=== PATIENT | female | born 1970 | race Caucasian/White ===

== ENCOUNTER 2017-10-08 14:04 | Outpatient (CLI) | payer BC | END 2017-10-08 14:05 | disposition home or self-care (01) | LOC: BICMAMMO 14:04 | PROVIDERS: ATTEND Physician Assistant | DX: Z13.820 Encounter for screening for osteoporosis (principal) | CPT/HCPCS: 77080 ==

== ENCOUNTER 2018-05-09 07:04 | Outpatient (CLI) | payer BC ==
[2018-05-09 17:24] LABS: Hemoglobin 11.1 g/dL (12.0-16.0); Mean Corpuscular HGB CONC 32.1 g/dL (32.0-36.0); Mean Corpuscular Volume 74.9 fL (78.0-98.0); Mean Platelet Volume 9.8 fL (7.4-10.4); Platelet Count 301 thou/uL (130-400); Red Blood Cell (RBC) Count 4.62 mill/uL (4.20-5.40); White Blood Cell (WBC) Count 6.6 thou/uL (4.8-10.8)
[2018-05-09 17:41] LABS: Anion Gap 10 mmol/L (10-20); BUN (Urea Nitrogen) 14 mg/dL (7.0-18.7); Calc. Creatinine Clearance 0 mL/min (70-130); Calcium 9.4 mg/dL (7.8-10.44); Carbon Dioxide 29 mmol/L (22-29); Chloride 105 mmol/L (98-107); Estimated GFR-MDRD 71; Glucose 85 mg/dL (70-105); Potassium 4.1 mmol/L (3.5-5.1); Sodium 140 mmol/L (136-145)
== END 2018-05-09 07:05 | disposition home or self-care (01) ==
LOC: LABBT 07:04
PROVIDERS: ATTEND Obstetrics & Gynecology
DX: Z01.812 Encounter for preprocedural laboratory examination (principal); N92.1 Excessive and frequent menstruation with irregular cycle
CPT/HCPCS: 80048; 85027; 86850; 86900; 86901

== ENCOUNTER 2018-05-10 05:54 | Day surgery (SDC) | payer BC ==
[2018-05-09 16:28] VITALS: BMI 26.9
--- NOTE | 2018-05-09 23:25 | HP ---
DATE OF PLANNED PROCEDURE: 05/10/2018. PREOPERATIVE DIAGNOSIS: Menometrorrhagia. HISTORY OF PRESENT ILLNESS: Ms. Eladia Ward is a 47-year-old who is G0, is referred to me for irregular bleeding. The patient reports that years ago, her periods were regular monthly, but since a gastric sleeve procedure in 2014, her periods have become more irregular and heavier. She reports that she has periods somewhere between every 2-6 weeks. Her periods are heavy with passage of clots and bright red bleeding. At times, she also notes prolonged periods lasting 2-3 weeks. The patient underwent removal of a cervical polyp and endometrial biopsy and was started on low-dose oral contraceptives for management of her menometrorrhagia. The patient returned to clinic months later requesting definitive management with a hysterectomy as she continues to have irregular bleeding; however, business architect, but still irregular with medical management. The patient has a history of iron and has lost approximately 210 pounds since gastric sleeve procedure over 3 years ago. PAST MEDICAL HISTORY: Overweight. Gastroesophageal reflux disease. PAST SURGICAL HISTORY: Gastric sleeve surgery in 2014, arthroscopic left knee surgery, and cholecystectomy. FAMILY HISTORY: Hypercholesterolemia in her mother. Obesity in both her parents. Coronary artery disease in her father. SOCIAL HISTORY: The patient has never been a smoker. She denies alcohol or drug use. CURRENT MEDICATIONS: 1. Furosemide 20 mg as needed. 2. Potassium supplement. 3. Multivitamin. 4. Prilosec over the counter. ALLERGIES: THE PATIENT IS ALLERGIC TO BACTRIM AND SULFA ANTIBIOTICS. REVIEW OF SYSTEMS: Negative except as stated in HPI. PHYSICAL EXAMINATION: GENERAL: No acute distress. Alert and oriented. VITAL SIGNS: 5 feet 8 inches, 177 pounds. BMI 26.9, blood pressure 110/60, pulse 59, respirations 18, O2 saturation 99%. Last menstrual period 03/29/2018. CHEST: Nonlabored breathing. ABDOMEN: Soft, nondistended, nontender. No guarding or rebound. No masses. Well-healed laparoscopic incisions noted from previous surgery. GENITOURINARY: Normal external female genitalia. Normal vaginal mucosa. No cervical lesions. No discharge. No cervical motion tenderness. Uterus is midline, not enlarged on exam. Adnexa with no masses. Bladder and urethra are nondistended with a normal meatus. SKIN: No rashes. MENTAL STATUS: Appropriate affect and appropriate mood. DIAGNOSTICS: Endometrial biopsy from 10/21/2017 with benign secretory endometrium. Cervical polyp noted to be a benign endocervical polyp. ASSESSMENT AND PLAN: Ms. Eladia Ward is a 47-year-old with menometrorrhagia likely secondary to extreme weight loss of over 200 pounds. However, refractory to medical management. The patient desires definitive management with robotic assisted total laparoscopic hysterectomy and bilateral salpingectomy. The risks and benefits of the procedure have been explained to her in detail. The risks are to include, but not limited to bleeding, infection, conversion to open laparotomy, inability to fully diagnose and treat all conditions at the time of surgery and possible need for future medical and/or surgical management. The patient's questions have been answered to her satisfaction and she desires to proceed with the procedure as listed above. Job ID: [id number]
[2018-05-10] MEDS ORDERED: Gabapentin 300 MG CAP ONE (06:19)
[2018-05-10] MEDS ORDERED: Famotidine/PF 20 mg/2ml Vial ONE (06:19)
[2018-05-10] MEDS ORDERED: CEFAZOLIN 2 GM/50 ML BAG ONE (06:20)
[2018-05-10] MEDS ORDERED: CeleCOXIB 100 MG CAP ONE (06:20)
[2018-05-10] MEDS ORDERED: Bupivacaine HCl 0.5%/Epinephrine 1:200,000/PF 30 ml Vial ONE (07:07)
[2018-05-10] MEDS ORDERED: Fentanyl 250 MCG/5 ML VIAL ONE (07:12)
[2018-05-10] MEDS ORDERED: Midazolam HCl 2 mg/2 ml Vial ONE (07:25)
[2018-05-10] MEDS ORDERED: Ropivacaine 0.2% 550 ML 750 ML NERVE BLCK SCH (07:45)
[2018-05-10] MEDS ORDERED: ROPIVACAINE HCL NERVE BLCK SCH (08:00)
[2018-05-10] MEDS ORDERED: ADMIXTURE FEE NERVE BLCK SCH (08:00)
[2018-05-10] MEDS ORDERED: Ondansetron HCl/PF 4 MG/2 ML Vial IVP PRN (08:11)
[2018-05-10] MEDS ORDERED: Promethazine HCl 25 MG/ML VIAL IM PRN ×2 (08:11→12:30)
[2018-05-10] MEDS ORDERED: Fentanyl 100 MCG/2 ML VIAL ONE ×2 (10:40→11:13)
[2018-05-10] MEDS ORDERED: Zolpidem Tartrate 5 MG TAB PO PRN (12:30)
[2018-05-10] MEDS ORDERED: Sodium Chloride 0.9% 1,000 ML IV SCH (12:30)
[2018-05-10] MEDS ORDERED: Morphine 4 MG/ML VIAL SLOW IVP PRN (12:30)
[2018-05-10] MEDS ORDERED: HYDROcodone/Acetaminophen 5/325 mg Tablet PO PRN ×2 (12:30)
[2018-05-10] MEDS ORDERED: Ondansetron PF 4 MG/2 ML Vial IVP PRN (12:30)
[2018-05-10] MEDS ORDERED: diphenhydrAMINE 25 MG CAP PO PRN (12:30)
[2018-05-10] MEDS ORDERED: Simethicone Chewable 80 MG TAB PO PRN (12:30)
[2018-05-10] MEDS ORDERED: Bisacodyl 10 MG SUPP PR PRN (12:30)
[2018-05-10] MEDS ORDERED: Ondansetron PF 4 MG/2 ML Vial ONE (13:59)
[2018-05-10] MEDS ORDERED: Dexamethasone 20 MG/5 ML VIAL ONE (13:59)
[2018-05-10] MEDS ORDERED: Rocuronium Bromide 10 MG/ML (10ML VIAL) ONE (13:59)
[2018-05-10] MEDS ORDERED: PROPOFOL 200 MG/20 ML VIAL ONE (13:59)
[2018-05-10] MEDS ORDERED: Ibuprofen 800 MG TAB PO SCH (14:00)
--- NOTE | 2018-05-10 14:05 | PDOC.EVN ---
Event Note - Event Note Event Note: POD 0 -Doing well, using OnQ for pain control, no nausea, just started CLD O: NAD A and O resting comfortably A/P: POD 0 after LUIS Gunderson just DC'd, likely DC later this evening.
[2018-05-10 14:26] VITALS: TEMP 98.1
[2018-05-10 16:42] VITALS: BP 128/60
--- NOTE | 2018-05-10 16:57 | OP ---
DATE OF PROCEDURE: 05/10/2018 PREOPERATIVE DIAGNOSES: 1. Menometrorrhagia. 2. History of bariatric surgery. PROCEDURES PERFORMED: Robotic-assisted total laparoscopic hysterectomy, bilateral salpingectomy, and placement of On-Q pump. ASSISTANTS: JESSENIA Nolasco and Janis Samuels MD COMPLICATIONS: None. ESTIMATED BLOOD LOSS: 50 mL. URINE OUTPUT: 50 mL during the case and 75 mL at the start of the case. ANESTHESIA: GETA per Dr. Sy. FINDINGS: 1. Uterus sounds to 7 cm. 2. Redundant connective tissue and abdominal laxity. 3. Normal-appearing uterus, tubes, and ovaries bilaterally during the laparoscopic portion of the case. 4. Surgical site hemostatic and vaginal cuff hemostatic. 5. No intraabdominal adhesive disease. DESCRIPTION OF PROCEDURE: The patient was taken back to the OR with IV fluids running. When she was in the OR, she was placed in dorsal supine position and general anesthesia was obtained. Once the patient was asleep, her arms were tucked at her side and her legs were placed in low dorsal lithotomy position. The abdomen and vagina were prepped and draped in normal fashion for gynecologic laparoscopy. A Gunderson catheter was placed into the bladder, which drained 75 mL of urine. A Vy syringe was placed at the tip of the catheter for bladder manipulation if needed during the case. An operative speculum was placed into the vagina, and the anterior lip of the cervix was easily visualized and grasped. The cervix was serially dilated to allow passage of a uterine sound. The uterus sounded between 7 and 8 cm. A Poliana-Zeo manipulator was assembled with an 8 cm tip and 3.5 cm cup and placed into the uterus and vagina in normal fashion. The vaginal and uterine occluder balloons were inflated. The surgeon's gloves were changed. Then, attention was turned to the laparoscopic portion of the case. Beginning approximately 4 cm above the umbilicus, the skin was injected with local anesthesia. A 12-mm skin incision was made with a scalpel. The abdomen was tented up, and a Veress needle was passed. However, the peritoneum did not insufflate and we were unable to get a low insufflation pressure with a Veress needle. Due to the concern for distorted anatomy after bariatric surgery and connective tissue laxity, the decision was made to proceed with a direct entry using Magnolia technique. The skin was incised approximately 2 to 3 mm additional for visualization. The fascia was identified, and the adipose tissue was dissected around the fascia. The fascia was then incised, and the edges of the fascia were tagged with Vicryl suture. The Magnolia port was then placed into the peritoneal cavity. The intraperitoneal balloon on the trocar tip was inflated, and the abdomen was then insufflated without difficulty. The laparoscope was placed through the trocar with the above findings noted. The patient was then placed in Trendelenburg position. The next three ports were placed as 8 mm ports in the right and left lower quadrant and a 12 mm port in the right upper quadrant. These were all placed after injecting local anesthesia into the skin, incising the skin with a scalpel and placing the trocar through the skin incision under direct visualization all done without difficulty. After the ports were placed, the robotic arms were docked. The instruments were passed through the trocars under direct visualization. Beginning on the patient's left side, the left fallopian tube was elevated. It was grasped and elevated away from the pelvic sidewall. It was cauterized, transected, and removed and sent for pathologic review. The utero-ovarian artery was cauterized with bipolar cautery on the patient's left side. The round ligament on the patient's left side was cauterized, incised, and divided into anterior and posterior leaves. The round ligament was taken down toward the level of the uterine artery. Uterine artery was then skeletonized. After uterine artery was skeletonized, the anterior leaf of the broad ligament was taken down toward the level of the cervix, and the bladder flap was created. The uterine artery was then cauterized and divided on the patient's left side. Good hemostasis was noted. Attention was then turned to the contralateral side, where the right fallopian tube was grasped, elevated, and transected with cautery. The right fallopian tube was removed to be sent with a final pathologic specimen. The utero-ovarian ligament on the patient's right side was cauterized and transected allowing the right ovary to fall away to the right pelvic sidewall. Of note, the ureters were both easily visualized prior to and during this part of the case. The right round ligament was then cauterized, transected, and divided into anterior and posterior leaves. The anterior leaf was taken down around the uterine artery, and the bladder flap was continued until it could be completely dissected away from the planned colpotomy site. The uterine artery on the patient's right side was skeletonized, cauterized, and transected. The bladder flap was then further dissected [id number] as the vesicouterine tissue was dissected away from the planned colpotomy site. Once this was completed, the colpotomy began posteriorly. The colpotomy was completed circumferentially without difficulty. After the specimen was transected, the uterus and cervix were retracted into the vagina. The vaginal cuff was irrigated and suctioned dry. No areas of bleeding were noted at the vaginal cuff. The vaginal cuff was then closed with Stratafix suture in a running fashion and then 2 layers. Once the vaginal cuff was closed, the surgical sites again were irrigated and suctioned dry. They were inspected with no areas of bleeding noted. An On-Q pump catheter was placed below the umbilicus through the skin under direct visualization. The catheter was threaded down into the pelvis and was primed and noted to be working well. The catheter sheath was then removed, and the catheter was taped in place to the skin. The pressure was dropped down to 8 mmHg with no areas of bleeding noted. All instruments were removed from the abdomen. The counts were correct. The supraumbilical fascial incision was closed with a series of interrupted Vicryl sutures. The defect that had been created in the fascia below the umbilicus was oversewn, and anatomy was restored. The incision above the fascia at the supraumbilical site was irrigated and dried. No areas of bleeding were noted. All 4 skin incisions were closed with Monocryl suture and dressed with Dermabond dressing. The vagina was inspected with no bleeding noted. The patient was cleaned, dried, taken out of lithotomy position, extubated, and transferred to the recovery room in good condition. Job ID: [id number]
[2018-05-10] MEDS ORDERED: Ketorolac Tromethamine 30 MG/ML VIAL IVP SCH (18:00)
[2018-05-15] MEDS ORDERED: Ibuprofen 800 MG TAB PO SCH (22:00)
== END 2018-05-10 16:10 | disposition home or self-care (01) ==
LOC: SDC 05:54 → 3SE 10:53 → SDC 16:10
PROVIDERS: ATTEND Obstetrics & Gynecology
PROC: 0UT94ZZ Resection of Uterus, Percutaneous Endoscopic Approach (ICD-10-PCS; principal; 2018-05-10)
PROC: 0UT74ZZ Resection of Bilateral Fallopian Tubes, Percutaneous Endoscopic Approach (ICD-10-PCS; principal; 2018-05-10)
PROC: 0UT24ZZ Resection of Bilateral Ovaries, Percutaneous Endoscopic Approach (ICD-10-PCS; principal; 2018-05-10)
DX: N80.0 Endometriosis of uterus (principal); N72 Inflammatory disease of cervix uteri; N83.8 Other noninflammatory disorders of ovary, fallopian tube and broad ligament; K21.9 Gastro-esophageal reflux disease without esophagitis; E66.3 Overweight; Z68.26 Body mass index [BMI] 26.0-26.9, adult; Z79.899 Other long term (current) drug therapy; Z88.2 Allergy status to sulfonamides; Z88.8 Allergy status to other drugs, medicaments and biological substances; Z98.84 Bariatric surgery status
CPT/HCPCS: 88307; 96374; J0670; J1100; J2250; J2405; J2704; J2795; J3010; S0028

== ENCOUNTER 2018-11-08 15:51 | Outpatient (CLI) | payer BC ==
--- NOTE | 2018-11-15 08:13 | MMO ---
Bilateral MAMMO Bilat Screen [facility]. CLINICAL HISTORY: Patient is 48 years old and is seen for screening. The patient has no family history of breast cancer. The patient has no personal history of cancer. VIEWS: The views performed were: bilateral craniocaudal with tomosynthesis and bilateral mediolateral oblique with tomosynthesis. FILMS COMPARED: The present examination has been compared to prior imaging studies performed at [facility] on 09/26/2014, 10/21/2015, 10/26/2016 and 10/29/2017. MAMMOGRAM FINDINGS: There are scattered fibroglandular densities. There are no suspicious masses, suspicious calcifications, or new areas of architectural distortion. IMPRESSION: THERE IS NO MAMMOGRAPHIC EVIDENCE OF MALIGNANCY. A ROUTINE FOLLOW-UP MAMMOGRAM IN 1 YEAR IS RECOMMENDED. THE RESULTS OF THIS EXAM WERE SENT TO THE PATIENT. ACR BI-RADS Category 1 - Negative MAMMOGRAPHY NOTE: 1. A negative mammogram report should not delay a biopsy if a dominant of clinically suspicious mass is present. 2. Approximately 10% to 15% of breast cancers are not detected by mammography. 3. Adenosis and dense breasts may obscure an underlying neoplasm. Reported by: SALIMA CLEMENS MD Electonically Signed: [id number]
== END 2018-11-08 15:52 | disposition home or self-care (01) ==
LOC: BICMAMMO 15:51
PROVIDERS: ATTEND Physician Assistant
DX: Z12.31 Encounter for screening mammogram for malignant neoplasm of breast (principal)
CPT/HCPCS: 77063; 77067

== ENCOUNTER 2019-11-03 08:33 | Outpatient (CLI) | payer BC ==
--- NOTE | 2019-11-03 09:50 | MMO ---
Bilateral MAMMO Bilat Screen [facility]. CLINICAL HISTORY: Patient is 49 years old and is seen for screening. The patient has no family history of breast cancer. The patient has no personal history of cancer. VIEWS: The views performed were: bilateral craniocaudal with tomosynthesis and bilateral mediolateral oblique with tomosynthesis. FILMS COMPARED: The present examination has been compared to prior imaging studies performed at [facility] on 11/08/2018, and at [facility] on 10/21/2015, 10/26/2016 and 10/29/2017. This study has been interpreted with the assistance of computer-aided detection. MAMMOGRAM FINDINGS: There are scattered fibroglandular densities. There is a new nodule in the right upper outer breast close the nipple In the left breast, there are no suspicious masses, calcifications or areas of architectural distortion. IMPRESSION: FINDING IN THE RIGHT BREAST REQUIRES ADDITIONAL EVALUATION. SPOT COMPRESSION IS RECOMMENDED. AN ULTRASOUND EXAM IS RECOMMENDED. THE RESULTS OF THIS EXAM WERE SENT TO THE PATIENT. ACR BI-RADS Category 0 - Incomplete: Need additional imaging evaluation. [facility] will notify the patient of the need for additional imaging services. MAMMOGRAPHY NOTE: 1. A negative mammogram report should not delay a biopsy if a dominant of clinically suspicious mass is present. 2. Approximately 10% to 15% of breast cancers are not detected by mammography. 3. Adenosis and dense breasts may obscure an underlying neoplasm. Reported by: PRIMITIVO DANIELSON MD Electonically Signed: [id number]
== END 2019-11-03 08:34 | disposition home or self-care (01) ==
LOC: BICMAMMO 08:33
PROVIDERS: ATTEND Physician Assistant
DX: Z12.31 Encounter for screening mammogram for malignant neoplasm of breast (principal)
CPT/HCPCS: 77063; 77067

== ENCOUNTER 2019-11-07 09:23 | Outpatient (CLI) | payer BC ==
--- NOTE | 2019-11-07 10:18 | MMO ---
Right Breast MAMMO Unilat Diag [facility]. CLINICAL HISTORY: Patient is 49 years old and is seen for additional evaluation requested from prior study. The patient has no family history of breast cancer. The patient has no personal history of cancer. VIEWS: The views performed were: right craniocaudal spot compression with tomosynthesis; right mediolateral oblique spot compression with tomosynthesis; and right mediolateral with tomosynthesis. FILMS COMPARED: The present examination has been compared to prior imaging studies performed at [facility] on 11/08/2018, 11/03/2019 and 11/07/2019, and at [facility] on 10/29/2017. This study has been interpreted with the assistance of computer-aided detection. MAMMOGRAM FINDINGS: There are scattered fibroglandular densities. Probabble nodule in the superior right breast close to the nipple does not definitely persist on spot compression CC view and is not seen on US. IMPRESSION: FINDING IN THE RIGHT BREAST IS PROBABLY BENIGN. FOLLOW-UP IN 3 MONTHS IS RECOMMENDED. THE RESULTS OF THIS EXAM WERE SENT TO THE PATIENT. ACR BI-RADS Category 3 - Probably benign finding - short interval follow-up suggested. [facility] will notify the patient of the need for additional imaging services. MAMMOGRAPHY NOTE: 1. A negative mammogram report should not delay a biopsy if a dominant of clinically suspicious mass is present. 2. Approximately 10% to 15% of breast cancers are not detected by mammography. 3. Adenosis and dense breasts may obscure an underlying neoplasm. Reported by: PRIMITIVO DANIELSON MD Electonically Signed: [id number]
--- NOTE | 2019-11-07 10:37 | ULT ---
RIGHT BREAST ULTRASOUND: Date: )11/07/2019 HISTORY: Abnormal mammogram. FINDINGS: Correlation made with mammograms from today and from 11/03/2019. The sonographic evaluation of the right upper breast is performed from the 10 through 2 o'clock posit ions (including the standoff pad). No abnormal is seen to correspond to the finding on mammogram. IMPRESSION: BI-RADS Category 3 - Probably benign findings. 3 month follow-up right diagnostic mammogram and right breast ultrasound recommended. The facility will notify patient of need for additional imaging services.
== END 2019-11-07 09:24 | disposition home or self-care (01) ==
LOC: BICMAMMO 09:23
PROVIDERS: ATTEND Physician Assistant
DX: N63.11 Unspecified lump in the right breast, upper outer quadrant (principal)
CPT/HCPCS: G0279

== ENCOUNTER 2020-02-13 13:14 | Outpatient (CLI) | payer BC ==
--- NOTE | 2020-02-13 14:29 | MMO ---
Right Breast MAMMO Unilat Diag [facility]. CLINICAL HISTORY: Patient is 49 years old and is seen for diagnostic exam. The patient has no family history of breast cancer. The patient has no personal history of cancer. The patient has a history of bilateral mastopexy in November,. VIEWS: The views performed were: right craniocaudal with tomosynthesis; right mediolateral oblique with tomosynthesis; and right mediolateral with tomosynthesis. FILMS COMPARED: The present examination has been compared to prior imaging studies performed at [facility] on 11/03/2019, 11/07/2019 and 02/13/2020. This study has been interpreted with the assistance of computer-aided detection. MAMMOGRAM FINDINGS: There are scattered fibroglandular densities. Nodular density persists superior periareolar on mlo and ml views. No ultrasound abnormality. IMPRESSION: FINDING IN THE RIGHT BREAST IS PROBABLY BENIGN. RECOMMEND 9-MONTH FOLLOWUP WITH BILATERAL EXAMINATION IN KEEPING WITH REGULAR ANNUAL STUDY. THE RESULTS OF THIS EXAM WERE SENT TO THE PATIENT. ACR BI-RADS Category 3 - Probably benign finding - short interval follow-up suggested. [facility] will notify the patient of the need for additional imaging services. MAMMOGRAPHY NOTE: 1. A negative mammogram report should not delay a biopsy if a dominant of clinically suspicious mass is present. 2. Approximately 10% to 15% of breast cancers are not detected by mammography. 3. Adenosis and dense breasts may obscure an underlying neoplasm. Reported by: DERICK CARTER MD Electonically Signed: [id number]
--- NOTE | 2020-02-13 14:35 | ULT ---
ULTRASOUND RIGHT BREAST: 02/13/20 INDICATIONS: Ultrasound of the superior periareola of the right breast was performed to assess for nodular density seen on mammography. No sonographic abnormality identified. Recommend follow-up mammogram at time for bilateral annual screening in nine months. IMPRESSION: BIRADS 3: Probably Benign Finding Initial Short-Interval Follow-Up Suggested Initial short-term follow up (usually 6-month) examination Recommend follow-up exam at time of patient's annual exam. POS: OFF
== END 2020-02-13 13:15 | disposition home or self-care (01) ==
LOC: BICMAMMO 13:14
PROVIDERS: ATTEND Physician Assistant
DX: R92.8 Other abnormal and inconclusive findings on diagnostic imaging of breast (principal)
CPT/HCPCS: G0279

== ENCOUNTER 2020-10-24 13:45 | Outpatient (CLI) | payer BC | END 2020-10-24 13:46 | disposition home or self-care (01) | LOC: BICMAMMO 13:45 | PROVIDERS: ATTEND Physician Assistant | DX: R92.8 Other abnormal and inconclusive findings on diagnostic imaging of breast (principal) | CPT/HCPCS: 77066; G0279 ==

== ENCOUNTER 2021-10-30 13:45 | Outpatient (CLI) | payer BC | END 2021-10-30 13:46 | disposition home or self-care (01) | LOC: BICMAMMO 13:45 | PROVIDERS: ATTEND Physician Assistant | DX: Z12.31 Encounter for screening mammogram for malignant neoplasm of breast (principal); R92.1 Mammographic calcification found on diagnostic imaging of breast; Z98.890 Other specified postprocedural states | CPT/HCPCS: 77063; 77067 ==

== ENCOUNTER 2022-12-11 08:57 | Outpatient (CLI) | payer BC | END 2022-12-11 08:58 | disposition home or self-care (01) | LOC: BICMAMMO 08:57 | PROVIDERS: ATTEND Physician Assistant | DX: Z12.31 Encounter for screening mammogram for malignant neoplasm of breast (principal); Z98.890 Other specified postprocedural states | CPT/HCPCS: 77063; 77067 ==

== ENCOUNTER 2023-12-16 15:32 | Outpatient (CLI) | payer BC | END 2023-12-16 15:33 | disposition home or self-care (01) | LOC: BICMAMMO 15:32 | PROVIDERS: ATTEND Nurse Practitioner Family | DX: Z12.31 Encounter for screening mammogram for malignant neoplasm of breast (principal); Z98.890 Other specified postprocedural states | CPT/HCPCS: 77063; 77067 ==